=== PATIENT | female | born 1955 | race African-American/Black ===

== ENCOUNTER 2016-09-04 15:15 | Emergency (ER) | payer OTHER ==
[2016-09-04 15:31] VITALS: BP 134/77; PULSE 110; TEMP 98; BMI 45.7
--- NOTE | 2016-09-04 17:04 | PDOC ---
History of Present Illness - General Chief Complaint: Injury Stated Complaint: TOE INJURY Time Seen by Provider: 09/04/16 15:44 - History of Present Illness Initial Comments: 09/04/16 16:59 CHIEF COMPLAINT: ft pain HISTORY OF PRESENT ILLNESS: 61 y F with hx of history of hypertension, type of diabetes, asthma, headaches, multiple myeloma presents to fast track with left foot pain s/p injury yesterday. Patient states she was getting out of the pool yesterday when her foot "got stuck" on something and she required help extricating her foot. She states that after her foot was freed, she felt siginificant pain to her left foot and she has been walking with a cane to avoid putting weight on it. PAST MEDICAL HISTORY: Denies past medical history FAMILY HISTORY: Denies SOCIAL HISTORY: Denies tobacco, alcohol, illicit drug use. SURGICAL HISTORY: Denies ALLERGIES: No known drug allergies REVIEW OF SYSTEMS General/Constitutional: Denies fever or chills. Denies weakness, weight change. HEENT: Denies change in vision. Cardiovascular: Denies chest pain or shortness of breath. Musculoskeletal: Left foot pain. PHYSICAL EXAM General Appearance: Well-appearing, appropriately dressed. No apparent distress. HEENT: EOMI, PERRLA, normal ENT inspection, normal voice, TMs normal, pharynx normal. No conjunctival pallor. No photophobia, scleral icterus. Neck: Supple. Trachea midline. No tenderness, rigidity, carotid bruit, stridor , lymphadenopathy, or thyromegaly. Respiratory/Chest: Lungs CTAB. No shortness of breath, chest tenderness, respiratory distress, accessory muscle use. No crackles, rales, rhonchi, stridor , wheezing, dullness Cardiovascular: RRR. S1, S2. No JVD, murmur, bradycardia, tachycardia. Vascular Pulses: Dorsalis-Pedis (R): 2+, Dorsalis-Pedis (L): 2+ Gastrointestinal/Abdominal: Normal bowel sounds. Abdomen soft, non-distended. No tenderness or rebound tenderness. No organomegaly, pulsatile mass, guarding , hernia, hepatomegaly, splenomegaly. Lymphatic: No adenopathy, tenderness. Musculoskeletal/Extremities: Tenderness to distal collins and left 4th and 5th toes. Normal inspection. FROM of all extremities, normal capillary refill. Pelvis Stable. No CVA tenderness. No tenderness to extremities, pedal edema, swelling, erythema or deformity. Integumentary: Appropriate color, dry, warm. No cyanosis, erythema, jaundice or rash Neurologic: airline security representative II-XII intact. Fully oriented, alert. Appropriate mood/affect. Motor strength 5/5. No appreciable EOM palsy, facial droop or sensory deficit. 09/04/16 17:09 Past History - Past Medical History Allergies/Adverse Reactions: Allergies Allergy/AdvReac Type Severity Reaction Status Date / Time shellfish derived Allergy Severe Swelling Verified 09/04/16 15:31 Home Medications: Ambulatory Orders Furosemide [Lasix -] 40 mg PO DAILY 09/04/16 Gabapentin 600 mg PO ASDIR 09/04/16 Losartan Potassium [Cozaar -] 50 mg PO DAILY 09/04/16 Morphine *Sr* [Ms Contin -] 15 mg PO ASDIR 09/04/16 Morphine Sulfate [Morphine Sulfate ER] 10 mg PO ASDIR 09/04/16 Asthma: Yes Cancer: Yes (MULTIPLE MYELOMA) Diabetes: Yes HTN: Yes - Surgical History Appendectomy: Yes - Psycho/Social/Smoking Cessation Hx Suicidal Ideation: No Smoking Status: No Smoking History: Former smoker Have you smoked in the past 12 months: No Number of Cigarettes Smoked Daily: 0 Information on smoking cessation initiated: No *Physical Exam - Vital Signs Last Vital Signs Temp Pulse Resp BP Pulse Ox 98 F 110 H 18 134/77 97 09/04/16 15:26 09/04/16 15:26 09/04/16 15:26 09/04/16 15:26 09/04/16 15:26 ED Treatment Course - RADIOLOGY Radiology Studies Ordered: Category Date Time Status ANKLE & FOOT-LEFT* [RAD] Stat Radiology 09/04/16 16:01 Taken LEG TIB/FIB-LEFT [RAD] Stat Radiology 09/04/16 16:01 Taken Medical Decision Making - Medical Decision Making 09/04/16 17:06 61 y F with hx of history of hypertension, type of diabetes, asthma, headaches, multiple myeloma presents to fast track with left foot pain s/p injury yesterday. -Tib fib, ankle/foot x-rays Patient refused pain medications, states she already has pain meds. X-ray positive for 5th toe fracture . Hard sole shoe, hunter tape. Advised patient to take medication as prescribed and follow up with orthopedics if pain persists. Advised patient of signs and symptoms for return to ED. Patient verbalized understanding and agrees to plan. 09/04/16 17:11 *DC/Admit/Observation/Transfer Diagnosis at time of Disposition: Fracture - Discharge Dispostion Disposition: HOME Condition at time of disposition: Stable Admit: No - Referrals Referrals: Jules Almonte [Primary Care Provider] - - Patient Instructions Printed Discharge Instructions: DI for Foot Fracture Additional Instructions: Please take your pain medications as prescribed. If your pain persists past one week, please follow up with orthopedics (referral provided). If you experience any new or worsening pain, shortness of breath, palpitations, or any new or worsening symptoms, please return to the ER. - Post Discharge Activity
== END 2016-09-04 17:12 | disposition home or self-care (01) ==
LOC: JERFT 15:15
DX: S92.502A Displaced unspecified fracture of left lesser toe(s), initial encounter for closed fracture (principal); W23.1XXA Caught, crushed, jammed, or pinched between stationary objects, initial encounter; Y93.11 Activity, swimming; Y92.34 Swimming pool (public) as the place of occurrence of the external cause; Y99.8 Other external cause status; I10 Essential (primary) hypertension; E11.9 Type 2 diabetes mellitus without complications; J45.909 Unspecified asthma, uncomplicated
CPT/HCPCS: 73590-TC-LT; 73610-TC-LT; 73630-TC-LT; 99281-25